=== PATIENT | male | born 1995 | race Caucasian/White ===

== ENCOUNTER 2017-03-26 10:07 | Emergency (ER) | payer SELFPAY ==
[2017-03-26 11:20] VITALS: BP 117/62
--- NOTE | 2017-03-26 14:50 | ED ---
Laceration/Wound HPI - HPI Summary HPI Summary: Patient presents to the ED with CC of laceration to the right side of the scalp from hitting his head at work on the edge of a sharp object. Tetanus UTD. Denies LOC or VERA. Denies nausea, vomiting, visual disturbances or other symptoms. Bleeding is minimal and controlled. Denies medications or allergies. He is otherwise healthy. The laceration is .8cm and superficial. - History of Current Complaint Stated Complaint: HEAD LAC Time Seen by Provider: 03/26/17 12:08 Hx Obtained From: Patient Mechanism of Injury: Sharp/Blunt Trauma Onset/Duration: Sudden Onset Aggravating: Nothing Alleviating: Nothing Timing: Constant Onset Severity: Mild Current Severity: Mild Pain Intensity: 2 Pain Scale Used: 0-10 Numeric Associated Signs & Symptoms: Negative - Allergy/Home Medications Allergies/Adverse Reactions: Allergies Allergy/AdvReac Type Severity Reaction Status Date / Time No Known Allergies Allergy Verified 09/25/14 12:29 PMH/Surg Hx/FS Hx/Imm Hx Previously Healthy: Yes - Immunization History Hx Pertussis Vaccination: No Immunizations Up to Date: Unable to Obtain/Confirm Infectious Disease History: No Infectious Disease History: Denies: Traveled Outside the [place] in Last 30 Days - Social History Occupation: Employed Full-time Lives: With Family Alcohol Use: None Substance Use Type: Reports: None Hx Tobacco Use: Yes Smoking Status (MU): Light Every Day Tobacco Smoker Review of Systems Constitutional: Negative Negative: Fever, Chills, Fatigue Eyes: Negative Negative: Photophobia, Blurred Vision Cardiovascular: Negative Respiratory: Negative Genitourinary: Negative Positive: no symptoms reported, see HPI Negative: Arthralgia, Myalgia Positive: Other - .8cm laceration to right side of scalp Neurological: Negative Negative: Headache, Weakness, Paresthesia All Other Systems Reviewed And Are Negative: Yes Physical Exam Triage Information Reviewed: Yes Vital Signs On Initial Exam: Initial Vitals Temp Pulse Resp BP Pulse Ox 98.1 F 64 18 129/80 99 03/26/17 10:10 03/26/17 10:10 03/26/17 10:10 03/26/17 10:10 03/26/17 10:10 Vital Signs Reviewed: Yes Appearance: Positive: Well-Appearing, Well-Nourished Skin: Positive: Warm, Skin Color Reflects Adequate Perfusion, Other - .8cm laceration to the right side of the scalp Head/Face: Positive: Normal Head/Face Inspection Eyes: Positive: EOMI, DOYLE, Conjunctiva Clear Neck: Positive: Supple, No Lymphadenopathy Respiratory/Lung Sounds: Positive: Clear to Auscultation, Breath Sounds Present Cardiovascular: Positive: Normal, RRR, Pulses are Symmetrical in both Upper and Lower Extremities Musculoskeletal: Positive: Normal, Strength/ROM Intact Neurological: Positive: Sensory/Motor Intact, Alert, Oriented to Person Place, Time, Speech Normal Psychiatric: Positive: Normal AVPU Assessment: Alert Diagnostics - Vital Signs Vital Signs Temp Pulse Resp BP Pulse Ox 03/26/17 11:18 98.2 F 82 18 117/62 99 03/26/17 10:10 98.1 F 64 18 129/80 99 - Laboratory Lab Statement: Any lab studies that have been ordered have been reviewed, and results considered in the medical decision making process. Laceration Repair Course/Dx - Course Course Of Treatment: Patient is evaluated for laceration to the right side of the scalp. The wound measures .8cm, is superficial and bleeding is controlled. The wound was cleansed well and gauze wrapped. No need for mychal as it is superificial. Patient agrees with discharge. Tetanus UTD. - Differential Dx Differental Diagnoses: Avulsion, Laceration - Clinical Impression Provider Diagnoses: Laceration of scalp Discharge - Discharge Plan Condition: Stable Disposition: HOME Patient Education Materials: Laceration (ED), Head Injury (ED) Referrals: Yuriy Kilpatrick MD [Primary Care Provider] - Additional Instructions: Follow up with PCP as needed Continue with bandage throughout the day Use a towel over your pillow this evening
== END 2017-03-26 13:45 | disposition home or self-care (01) ==
LOC: ED 10:07
DX: S01.01XA Laceration without foreign body of scalp, initial encounter (principal); W22.8XXA Striking against or struck by other objects, initial encounter; Y92.9 Unspecified place or not applicable; F17.200 Nicotine dependence, unspecified, uncomplicated
CPT/HCPCS: 99282